=== PATIENT | female | born 2000 | race Two or more races ===

== ENCOUNTER 2021-04-27 19:12 | Emergency (ER) | payer OTHER ==
[~2021-04-27] VITALS: Ht 160 cm; Wt 53.5 kg
[2021-04-27] MEDS ORDERED: PROMETRIUM200 MG (19:23)
[2021-04-27] MEDS ORDERED: PRENATABS FA T1 EACH (19:24)
== END 2021-04-27 21:59 | disposition home or self-care (01) ==
LOC: ER 19:12
DX: O26.851 Spotting complicating pregnancy, first trimester (principal); N83.201 Unspecified ovarian cyst, right side; Z3A.01 Less than 8 weeks gestation of pregnancy